=== PATIENT | male | born 1940 | race Caucasian/White ===

== ENCOUNTER → 2016-10-10 | Outpatient (REF) | payer OTHER ==
[~2016-10-10] MED LIST: DIOV320T2 PO; ULTR50TA PO
== END ==
LOC: M SMT 17:01
PROVIDERS: ATTEND Urology
DX: Z85.51 Personal history of malignant neoplasm of bladder (principal)

== ENCOUNTER → 2017-01-25 | Outpatient (CLI) | payer OTHER, MEDICAID ==
--- NOTE | 2017-01-25 15:07 | REP ---
CT NECK WITHOUT CONTRAST: HISTORY: Neoplasm. A soft tissue mass is present along the buccal surface of the anterior left mandible and mandibular symphysis. The mass measures 2.5 cm in transverse x 1.8 cm in AP dimensions. There is destruction of the buccal cortex and alveolar ridge of the anterior left mandible and mandibular symphysis. There appears to be extension of the mass superiorly all along the alveolar ridge of the left mandible with minimal inferior extension along the lingual surface of the anterior left mandible and mandibular symphysis. There is very minimal prominence of the left tonsil. The hypopharynx, larynx and subglottic trachea are normal in appearance. The salivary glands are normal. A 5 mm calcification is present in the right thyroid lobe. The left thyroid lobe is normal. Small lymph nodes less than 1 cm in size are present in the internal jugular chains, posterior triangles, submandibular and submental areas. Atherosclerotic calcification is present at the carotid bifurcations. Minimal degenerative change is present in the cervical spine. The visualized lungs are clear. Minimal mucosal thickening is present in the left maxillary sinus. IMPRESSION: There is a soft tissue mass along the buccal surface of the anterior body of the left mandible and mandibular symphysis with associated destruction of the buccal cortex and alveolar ridge of the anterior left mandible and mandibular symphysis. Signed by Luis Haddad MD 01/25/2017 03:54 P
--- NOTE | 2017-01-25 15:14 | REP ---
MAXILLOFACIAL CT WITHOUT CONTRAST: HISTORY: Neoplasm. Minimal mucosal thickening is present in the left maxillary sinus. The remaining sinuses are clear. The osteomeatal units are patent. A middle and inferior nasal turbinates are partially paradoxical. There is minimal deviation of the nasal septum to the left. The cribriform plate, medial harman of the orbits and optic canals are intact. There is aeration of the left anterior clinoid process. The carotid canals form a segment of the posterolateral harman of the sphenoid sinus. A soft tissue mass is present along the buccal surface of the anterior left mandible and mandibular symphysis. The mass measures 2.5 cm in transverse by 1.8 cm in AP dimensions. There is destruction of the buccal cortex and alveolar ridge of the anterior body of the left mandible and mandibular symphysis. Three is superior extension of the mass along the alveolar ridge of the anterior left mandible and mandibular symphysis. There is inferior extension of the mass along the lingual surface of the anterior body of the left mandible and mandibular symphysis. There is minimal prominence of the left tonsil. Small lymph nodes less than 1 cm in size are present in the internal jugular chains, posterior triangle, submandibular and submental areas. Atherosclerotic calcification is present at the carotid bifurcations. IMPRESSION: 1. Sinus mucosal thickening as described above. 2. There is a soft tissue mass along the buccal surface of the anterior body of the left mandible and mandibular symphysis with destruction of the buccal surface and alveolar ridge of the anterior left mandible and mandibular symphysis. Signed by Luis Haddad MD 01/25/2017 03:55 P
== END ==
LOC: M RAD 13:41
PROVIDERS: ATTEND Specialist
DX: C03.1 Malignant neoplasm of lower gum (principal)

== ENCOUNTER → 2017-03-08 | Outpatient (CLI) | payer OTHER, MEDICAID ==
[~2017-03-08] MED LIST changes: +AMLO10TA2 PO; +ASPI81TA21 PO; +ELIQ2.5T PO; +FURO40TA2 PO; +HYDR50TA PO; +KLOR1CAP2 PO; +LASI20TA PO; +LISI-542 PO; +METO1TAB32 PO; +NORC1TAB4 PO; +RANI1TAB38 PO
== END ==
LOC: M PLARAD 11:19
PROVIDERS: ATTEND Otolaryngology
DX: C41.1 Malignant neoplasm of mandible (principal); Z53.8 Procedure and treatment not carried out for other reasons

== ENCOUNTER 2017-03-13 13:13 | Inpatient (IN) | payer OTHER, MEDICAID, MEDICARE ==
[~2017-03-13] VITALS: Ht 172.7 cm; Wt 92.5 kg
[~2017-03-13 13:13] MED LIST changes: -AMLO10TA2 PO; -ASPI81TA21 PO; -ELIQ2.5T PO; -FURO40TA2 PO; -HYDR50TA PO; -KLOR1CAP2 PO; -LASI20TA PO; -LISI-542 PO; -METO1TAB32 PO; -NORC1TAB4 PO; -RANI1TAB38 PO
[2017-03-13] MEDS ORDERED: NS 1,000 ML IV SCH (13:28)
[2017-03-13] MEDS ORDERED: NS 500 ML IV ONE (13:30)
[2017-03-13 13:41] LABS: BASO % 0.6 % (0.0-1.0); EOS # 0.2 K/mm3 (0.0-0.50); EOS % 2.9 % (0.0-3.0); LARGE UNSTAINED CELL # 0.1 K/mm3 (0.0-0.4); LARGE UNSTAINED CELL % 1.1 % (0.0-4.0); LYMPH # 1.6 K/mm3 (1.5-4.5); LYMPH % 24.5 % (24.0-44.0); MEAN CORPUSCULAR HEMOGLOBIN 33.3 pg (27.0-33.0); MEAN CORPUSCULAR HGB CONC 33.2 g/dl (32.0-36.5); MEAN CORPUSCULAR VOLUME 100.2 fl (80.0-96.0); MONO # 0.4 K/mm3 (0.0-0.8); MONO % 5.9 % (0.0-5.0); NEUTROPHILS # 4.2 K/mm3 (1.8-7.7); NEUTROPHILS % 65.1 % (36.0-66.0); PLATELET COUNT, AUTOMATED 224 k/mm3 (150-450); WHITE BLOOD COUNT 6.4 K/mm3 (4.0-10.0)
[2017-03-13 13:46] LABS: INR 1.01
[2017-03-13] MEDS ORDERED: FURO40TA2 PO (13:53)
[2017-03-13] MEDS ORDERED: METO1TAB32 PO (13:53)
[2017-03-13] MEDS ORDERED: AMLO10TA2 PO (13:53)
[2017-03-13] MEDS ORDERED: RANI1TAB38 PO (13:53)
[2017-03-13] MEDS ORDERED: LISI-542 PO (13:53)
[2017-03-13] MEDS ORDERED: KLOR1CAP2 PO (13:53)
[2017-03-13] MEDS ORDERED: ASPI81TA21 PO (13:53)
[2017-03-13] MEDS ORDERED: NORC1TAB4 PO (13:53)
--- NOTE | 2017-03-13 14:00 | REP ---
PORTABLE CHEST: AP portable view of the chest is performed. There are no comparison studies. There is cardiomegaly. There is no evidence of acute infiltrate. The mediastinal silhouette is unremarkable. There is a possible 6 mm right parahilar nodule. IMPRESSION: No acute infiltrate. Cardiomegaly. Possible 6 mm nodule right mid lung. This could be evaluated with CT of the chest. Signed by Lawrence Terrell MD 03/13/2017 05:25 P
[2017-03-13 14:08] LABS: ALBUMIN 3.3 GM/DL (3.2-5.2); ALBUMIN/GLOBULIN RATIO 0.89 (1.00-1.93); ALKALINE PHOSPHATASE 98 U/L (45-117); ALT/SGPT 13 U/L (12-78); ANION GAP 10 MEQ/L (8-16); AST/SGOT 14 U/L (15-37); BILIRUBIN,DIRECT 0.2 MG/DL (0.0-0.2); BILIRUBIN,TOTAL 0.7 MG/DL (0.2-1.0); BLOOD UREA NITROGEN 38 MG/DL (7-18); CALCIUM LEVEL 8.8 MG/DL (8.8-10.2); CARBON DIOXIDE LEVEL 22 MEQ/L (21-32); CHLORIDE LEVEL 104 MEQ/L (98-107); CREATININE FOR GFR 2.62 MG/DL (0.70-1.30); GLOMERULAR FILTRATION RATE 25.6 (>42); GLUCOSE, FASTING 105 MG/DL (83-110); POTASSIUM SERUM 4.5 MEQ/L (3.5-5.1); SODIUM LEVEL 136 MEQ/L (136-145)
--- NOTE | 2017-03-13 15:41 | HPEPDOC ---
General Date of Admission Mar 13, 2017 at 15:22 Chief Complaint The patient is a 76-year-old male Presented to the ER after he was found to have bradycardia during a pre-operative clearance in [facility]. History of Present Illness Patient is a 76 year old male with a PMHx of Atiral flutter, HTN, CHF , CKD, Bladder CA (2012; s/p surgery and intra-bladder chemotherapy) and PVD (s/ p stent >10 years prior) who presented to the ER after he was found to have bradycardia during a pre-operative clearance in [facility]. Patient noted that he has no complaints. He has not had any chest pain, palpitations, shortness of breath, nausea or vomiting, or diaphoresis. He has a cardiology as an outpatient, Dr. Laurent. He denies a history of abnormal heart rhythm in the past. He also denies abdominal pain, diarrhea or urinary discomfort. He reports occasional constipation. Home Medications Scheduled (Klor-Con Sprinkle) 10 Meq Cap, 10 MEQ PO BID, (Reported) Amlodipine Besylate (Amlodipine Besylate) 10 Mg Tab, 10 MG PO DAILY, (Reported) Aspirin (Aspir-Low) 81 Mg Tab, 81 MG PO DAILY, (Reported) Furosemide (Furosemide) 40 Mg Tab, 40 MG PO BID, (Reported) Lisinopril (Lisinopril) 5 Mg Tab, 5 MG PO DAILY, (Reported) Metoprolol Succinate (Metoprolol Succinate ER) 25 Mg Tab, 25 MG PO DAILY, ( Reported) Ranitidine Hcl (Ranitidine Maximum Streng) 150 Mg Tab, 1 TAB PO BID, (Reported) Scheduled PRN Acetaminophen/Hydrocodone ([place] 5-325 mg) 1 Tab Tab, 1 TAB PO Q6H PRN for PAIN, (Reported) Allergies Coded Allergies: No Known Allergies (Unverified , 07/24/13) Past Medical History Medical History Atrial flutter (not on anticoagulation), HTN, CHF, CKD, Bladder CA (2012; s/p surgery and intra-bladder chemotherapy) and PVD (s/p stent >10 years prior) Surgical History Bladder surgery for cancer resection Bilateral cataract surgery Right inguinal hernia surgery (02/2016) Family History - Non-contributory Social History - Denies the use of illicit drugs; Social alcohol use; Smoker of >50 years at < 1 ppd - Denies recent travel or sick contacts - Lives alone - 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; 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 Review of Symptoms Other systems Constitutional: Denies weight loss, change in appetite, or recent trauma Eyes: No visual changes or eye pain Ears, Nose, Throat: Denies nose bleeds, or difficulty swallowing Cardiovascular: Denies chest pain, sweating, or orthopnea Respiratory: Denies cough, wheezing, or shortness of breath GI: Jr nausea, vomiting, abdominal pain, or diarrhea, Positive constipation : Denies pain with urination or frequency Musculoskeletal: Denies joint pain or swelling Neuro / Psych: Denies muscle weakness or sensory loss Skin: No skin rashes noted All other review of systems negative; otherwise stated in history of present illness Screening: - Colonoscopy done in the past with multiple polyps; most recent 5 years prior with no reported problems Vital Signs - Vitals: BP 139/58, HR 42, RR 16, Sat 98%RA - General: Lying in bed, No acute distress, Speaking in full sentences, AAOx3 - HEENT: NC, AT, PERRLA - CVS: Bradycardic, +S1S2 - Lungs: Fair air entry bilaterally, Clear to auscultation - Abdomen: Soft, Non-distended, Non-tender - Extremities: No lower extremity edema, No calf tenderness - Neuro: No focal motor or sensory deficit - Skin: No visible rashes Laboratory Data Labs 24H Laboratory Tests 2 03/13/17 13:28: White Blood Count 6.4, Red Blood Count 3.88L, Hemoglobin 12.9L, Hematocrit 38.9L , Mean Corpuscular Volume 100.2H, Mean Corpuscular Hemoglobin 33.3H, Mean Corpuscular Hemoglobin Concent 33.2, Red Cell Distribution Width 14.0, Platelet Count 224, Neutrophils (%) (Auto) 65.1, Lymphocytes (%) (Auto) 24.5, Monocytes ( %) (Auto) 5.9H, Eosinophils (%) (Auto) 2.9, Basophils (%) (Auto) 0.6, Neutrophils # (Auto) 4.2, Lymphocytes # (Auto) 1.6, Monocytes # (Auto) 0.4, Eosinophils # (Auto) 0.2, Basophils # (Auto) 0.0, Large Unclassified Cells % 1.1 , Large Unclassified Cells # 0.1, Prothrombin Time 13.4, Prothromb Time International Ratio 1.01, Anion Gap 10, Glomerular Filtration Rate 25.6L, Calcium Level 8.8, Aspartate Amino Transf (AST/SGOT) 14L, Alanine Aminotransferase (ALT/SGPT) 13, Alkaline Phosphatase 98, Total Bilirubin 0.7, Direct Bilirubin 0.2, Total Creatine Kinase 53, Creatine Kinase MB 1.0, Creatine Kinase MB Relative Index 1.88, Troponin I < 0.02, B-Type Natriuretic Peptide 1010H, Total Protein 7.0, Albumin 3.3, Albumin/Globulin Ratio 0.89L CBC/BMP Laboratory Tests 03/13/17 13:28 Red Blood Count 3.88 L, Mean Corpuscular Volume 100.2 H, Mean Corpuscular Hemoglobin 33.3 H, Mean Corpuscular Hemoglobin Concent 33.2, Red Cell Distribution Width 14.0, Neutrophils (%) (Auto) 65.1, Lymphocytes (%) (Auto) 24.5, Monocytes (%) (Auto) 5.9 H, Eosinophils (%) (Auto) 2.9, Basophils (%) ( Auto) 0.6, Neutrophils # (Auto) 4.2, Lymphocytes # (Auto) 1.6, Monocytes # (Auto ) 0.4, Eosinophils # (Auto) 0.2, Basophils # (Auto) 0.0 Plan / VTE VTE Prophylaxis Ordered?: Yes Plan Plan Bradycardia likely 2/2 medications 2/2 metoprolol - Presented without any complaints; no chest pain, shortness of breath or palpitations - Physical with regular bradycardia - EKG with atrial flutter and slow ventricular response - First set of troponin is negative; will trend - ER physician has discussed with Dr. Laurent (Cardiology); will be on consult; advised to hold metoprolol - Hold metoprolol for now; may need to restart at reduced dose - Will keep on telemetry monitoring; repeat EKG in AM - Discussed with Dr. Laurent; will start on Eliquis 2.5 BID Acute kidney injury on CKD - Baseline Cr from records (2013) appears to be 1.1 - Creatinine currently at 2.62 - Physical without signs of fluid overload - Will check urine electrolytes and urine osmolality - Will hold Furosemide and Lasix - Will start IV fluid hydration - Repeat BMP at 6PM Macrocytic anemia - Hg appears at baseline CHF - No ECHO report available - Discussed with Dr. Laurent; last ER of 40-50% - Physical without signs of fluid overload; appears compensated - BNP of 1000 - Will check 2D-ECHO - Will hold Lasix HTN - c/w Amlodipine 10mg with holding parameters - Hold Lasix and Lisinopril Bladder CA (2012) - s/p surgery and intra-bladder chemotherapy - Follows with Dr. Osborn PVD - s/p stent >10 years prior - c/w ASA 81 GERD - c/w Ranitidine DVT prophylaxis - Will start full anticoagulation with Eliquis BID DANIEL PALENCIA MD Mar 13, 2017 15:41
[2017-03-13 17:40] VITALS: BP 140/60
[2017-03-13] MEDS: NS 1,000 ML IV SCH (18:46)
[2017-03-13 20:00] VITALS: BP 184/78
[2017-03-13 20:15] LABS: CALCIUM LEVEL 8.4 MG/DL (8.8-10.2); CREATININE FOR GFR 2.48 MG/DL (0.70-1.30); GLOMERULAR FILTRATION RATE 27.3 (>42); POTASSIUM SERUM 3.7 MEQ/L (3.5-5.1)
[2017-03-13] MEDS: **hydrALAZINE HCL** 25 MG TAB PO SCH (21:10)
[2017-03-13] MEDS: APIXABAN 2.5 MG TAB (ELIQUIS) PO SCH (21:10)
[2017-03-13] MEDS: FAMOTIDINE 20 MG TAB PO SCH (21:15)
[2017-03-13] MEDS ORDERED: HEPARIN SOD (PORCINE) 5000 UNITS/ML VIAL SC SCH (22:00)
[2017-03-14] VITALS: BP 153/68
[2017-03-14 04:00] VITALS: BP 135/65
--- NOTE | 2017-03-14 05:21 | REP ---
Clinical: Acute on chronic renal failure. Rule out hydronephrosis. Technique: Real time sheehan scale and color evaluation using curved array transducer. Findings: The right kidney is atrophic, and hyperechoic consistent with chronic medical renal disease and age-related atrophy. 1.9 cm lower pole cyst is identified without hydronephrosis or obvious mass lesion. Right kidney measures 7.2 x 3.2 x 4.0 cm. The left kidney is normal in contour, size and echogenicity. A 2.0 cm complex lower pole cyst is identified without hydronephrosis, nephrolithiasis or obvious mass lesion. Left kidney measures 11.8 x 5.3 x 7.2 cm. Bladder is grossly unremarkable although mild wall thickening cannot be excluded. Impression: Atrophic chronic changes to the right kidney without hydronephrosis. Solitary bilateral renal cysts. Mild bladder wall thickening cannot be excluded based on current examination. Signed by Hermes Love MD 03/14/2017 05:12 A
[2017-03-14 05:56] LABS: BASO % 0.3 % (0.0-1.0); EOS # 0.2 K/mm3 (0.0-0.50); EOS % 2.8 % (0.0-3.0); LARGE UNSTAINED CELL # 0.1 K/mm3 (0.0-0.4); LARGE UNSTAINED CELL % 1.3 % (0.0-4.0); LYMPH # 1.3 K/mm3 (1.5-4.5); MEAN CORPUSCULAR HEMOGLOBIN 34.2 pg (27.0-33.0); MEAN CORPUSCULAR HGB CONC 34.1 g/dl (32.0-36.5); MEAN CORPUSCULAR VOLUME 100.2 fl (80.0-96.0); MONO # 0.3 K/mm3 (0.0-0.8); MONO % 5.4 % (0.0-5.0); NEUTROPHILS % 69.2 % (36.0-66.0); PLATELET COUNT, AUTOMATED 208 k/mm3 (150-450); RED CELL DISTRIBUTION WIDTH 14.1 % (11.5-14.5); WHITE BLOOD COUNT 5.8 K/mm3 (4.0-10.0)
[2017-03-14 06:45] LABS: ALBUMIN/GLOBULIN RATIO 0.86 (1.00-1.93); BILIRUBIN,TOTAL 0.8 MG/DL (0.2-1.0); CALCIUM LEVEL 8.5 MG/DL (8.8-10.2); CREATININE FOR GFR 2.21 MG/DL (0.70-1.30); GLOMERULAR FILTRATION RATE 31.1 (>42); TOTAL PROTEIN 6.5 GM/DL (6.4-8.2)
[2017-03-14 07:45] VITALS: BP 176/76
[2017-03-14] MEDS: amLODIPine 10 MG TAB PO SCH (09:31)
[2017-03-14] MEDS: APIXABAN 2.5 MG TAB (ELIQUIS) PO SCH ×2 (09:31→21:52)
[2017-03-14] MEDS: ASPIRIN 81 MG ENTERIC TAB PO SCH (09:31)
[2017-03-14] MEDS: FAMOTIDINE 20 MG TAB PO SCH ×2 (09:31→21:52)
[2017-03-14] MEDS: **hydrALAZINE HCL** 25 MG TAB PO SCH (09:31)
[2017-03-14] MEDS: NS 1,000 ML IV SCH (09:32)
--- NOTE | 2017-03-14 10:31 | ECGEPIP ---
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
[2017-03-14 12:00] VITALS: BP 165/69
[2017-03-14] MEDS: NORCO, ANEXSIA 5/325MG TABLET (HYDROcodone/ACETAMINOPHEN) PO PRN ×3 (13:16→22:23)
[2017-03-14] MEDS ORDERED: ELIQ2.5T PO (13:51)
--- NOTE | 2017-03-14 14:34 | IPN ---
DATE: 03/14/2017 SUBJECTIVE: Today, the patient tells me that he feels completely normal. He has no complaints whatsoever. He has not had any complaints throughout his presentation. He denies chest pain, lightheadedness, dizziness, nausea, vomiting, fevers, chills, chest pain, or shortness of breath. OBJECTIVE: VITAL SIGNS: Temperature 99.2, pulse 62, respiratory rate 20. Blood pressure 155/69. GENERAL: He is a disheveled, elderly, male lying flat in bed. He does not appear to be in any acute distress. HEENT: Poor dentition. Pupils are equal, round and reactive to light. No elevation of central venous pressure. Moist mucous membranes. CARDIOVASCULAR EXAMINATION: S1, S2. Bradycardic. Irregular. No additional heart sounds appreciated. RESPIRATORY EXAM: Clear. ABDOMINAL EXAM: Obese. EXTREMITIES: No clubbing, cyanosis or edema. He has nicotine stained fingertips. LABORATORY DATA: WBC 5.8, hemoglobin 12.0, platelet count 208. Chemistry panel: Sodium 141, potassium 4.0, chloride 109, bicarbonate 28, BUN 31, creatinine 2.2, which continues to improve from 2.6 at the time of admission. Multiple sets of cardiac enzymes are negative. IMAGING: The patient did have a renal ultrasound, which revealed atrophic change of the right kidney without hydronephrosis. Solitary bilateral renal cysts, mild bladder wall thickening. ASSESSMENT AND PLAN: This is a 76-year-old man with asymptomatic bradycardia secondary to medications. 1. Asymptomatic bradycardia. Likely related to metoprolol adverse effect. The patient's heart rate does appear to be improving with discontinuation of this medication. We will continue to monitor him for now. Dr. Laurent's help has been greatly appreciated. He does have atrial fibrillation without any rapid ventricular response. He has been started on Eliquis. This was sent to his pharmacy to obtain a prior authorization. 2. Acute kidney injury. Likely prerenal azotemia given his improvement with IV fluids and improvement of hemodynamics. Continue to hold his Lasix. We will discontinue IV fluids and encourage orally. Continue to monitor. 3. Macrocytic anemia. This appears to be at baseline and relatively mild. 4. Congestive heart failure (CHF) with moderate systolic dysfunction. As per Dr. Laurent. He does not appear to be decompensated. We will defer to Dr. Laurent if he feels an echocardiogram is necessary. 5. Hypertension. Continue his amlodipine. His Lasix was also on hold related to acute kidney injury. 6. Bladder cancer, status post surgery. He follows with Dr. Osborn. 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 His surgeon and oncologist are all in [place]. He will followup with them. 8. Peripheral vascular disease, status post stent 10 years ago. Continue with aspirin. 9. Gastroesophageal reflux disease (GERD). Continue with ranitidine. 10. Deep vein thrombosis (DVT) prophylaxis. The patient is on Eliquis. DISPOSITION: We will continue to monitor the patient closely. He may require adjustments with antihypertensive regimen. I suspect that he may be able to be discharged within the next 24 to 48 hours.
[2017-03-14 15:30] VITALS: BP 152/64
[2017-03-14] MEDS ORDERED: SLF 3 ML SYR IV PRN (19:00)
[2017-03-14 20:25] VITALS: BP 159/71
[2017-03-14] MEDS: SLF 3 ML SYR IV SCH (21:52)
[2017-03-14] MEDS: **hydrALAZINE** 50 MG TAB PO SCH (21:52)
[2017-03-15 00:51] VITALS: BP 163/77
[2017-03-15] MEDS: NORCO, ANEXSIA 5/325MG TABLET (HYDROcodone/ACETAMINOPHEN) PO PRN (05:12)
[2017-03-15] MEDS: SLF 3 ML SYR IV SCH (05:13)
[2017-03-15 05:18] VITALS: BP 160/81
[2017-03-15 05:52] LABS: BASO % 0.2 % (0.0-1.0); EOS # 0.1 K/mm3 (0.0-0.50); EOS % 1.7 % (0.0-3.0); LARGE UNSTAINED CELL # 0.1 K/mm3 (0.0-0.4); LYMPH # 1.6 K/mm3 (1.5-4.5); LYMPH % 23.2 % (24.0-44.0); MEAN CORPUSCULAR HEMOGLOBIN 33.4 pg (27.0-33.0); MEAN CORPUSCULAR HGB CONC 33.3 g/dl (32.0-36.5); MEAN CORPUSCULAR VOLUME 100.3 fl (80.0-96.0); MONO # 0.4 K/mm3 (0.0-0.8); MONO % 5.7 % (0.0-5.0); NEUTROPHILS # 4.5 K/mm3 (1.8-7.7); NEUTROPHILS % 68.2 % (36.0-66.0); PLATELET COUNT, AUTOMATED 208 k/mm3 (150-450); RED CELL DISTRIBUTION WIDTH 14.1 % (11.5-14.5); WHITE BLOOD COUNT 6.6 K/mm3 (4.0-10.0)
[2017-03-15] MEDS ORDERED: NORCO, ANEXSIA 5/325MG TABLET (HYDROcodone/ACETAMINOPHEN) PO PRN (06:00)
[2017-03-15 06:07] LABS: ALBUMIN 3.2 GM/DL (3.2-5.2); ALBUMIN/GLOBULIN RATIO 0.89 (1.00-1.93); BILIRUBIN,TOTAL 0.8 MG/DL (0.2-1.0); CALCIUM LEVEL 8.5 MG/DL (8.8-10.2); CREATININE FOR GFR 1.79 MG/DL (0.70-1.30); GLOMERULAR FILTRATION RATE 39.7 (>42); MAGNESIUM LEVEL 2.3 MG/DL (1.8-2.4); POTASSIUM SERUM 3.5 MEQ/L (3.5-5.1); TOTAL PROTEIN 6.8 GM/DL (6.4-8.2)
[2017-03-15] MEDS ORDERED: HYDR50TA PO (07:55)
[2017-03-15] MEDS ORDERED: LASI20TA PO (07:59)
[2017-03-15] MEDS: ASPIRIN 81 MG ENTERIC TAB PO SCH (08:29)
[2017-03-15] MEDS: FAMOTIDINE 20 MG TAB PO SCH (08:29)
[2017-03-15] MEDS: amLODIPine 10 MG TAB PO SCH (08:29)
[2017-03-15 08:30] VITALS: BP 160/81
[2017-03-15] MEDS: APIXABAN 2.5 MG TAB (ELIQUIS) PO SCH (08:30)
[2017-03-15] MEDS: **hydrALAZINE** 50 MG TAB PO SCH (08:30)
--- NOTE | 2017-03-16 13:56 | DSES ---
DATE OF ADMISSION: 03/13/2017 DATE OF DISCHARGE: 03/15/2017 DISCHARGE DIAGNOSIS: Acute kidney injury. SECONDARY DIAGNOSES: Bradycardia. Congestive heart failure. Hypertension. Bladder cancer. Oral cancer. Peripheral vascular disease. Gastroesophageal reflux disease. CONSULTS: Dr. Laurent, cardiology. HOSPITAL COURSE: The patient is a 76-year-old man who is undergoing preop risk stratification, was noted to be significant bradycardic although he was symptomatic, he was referred to the emergency room where his heart rate was found to be in the 30s and he was found to have acute kidney injury. He was admitted to the progressive care unit, seen by Dr. Laurent who is his outpatient mine wirer. The patient's metoprolol was stopped. He has a history of atrial flutter. His heart rate did improve to the mid 50s. He continues to be asymptomatic. He did have acute kidney injury that did resolve with holding of his home diuretic and gentle IV fluid resuscitation. At this time, the patient is doing well, asymptomatic. Tolerating all medications. During his stay, he was also started on Eliquis for anticoagulation by Dr. Laurent. Prior authorization has been attempted. SUBJECTIVE: This morning the patient tells me that he continues to feel well without complaint. OBJECTIVE: Vital signs: Temperature 98, pulse 59, respiratory rate 20, blood pressure 160/81, oxygen saturation 96% on room air. General: He is disheveled elderly man lying in bed. He does not appear to be in any acute distress. HEENT: Poor dentition. Moist mucous membranes. No elevation of CVP. Cranial nerves II through XII are grossly intact. Cardiovascular exam: S1, S2. Bradycardic but appears regular. No additional heart sounds appreciated. Respiratory exam: Clear. Abdominal exam: Obese. Extremities: No clubbing, cyanosis or edema. He has nicotine stained fingertips. LABORATORY STUDIES TODAY: WBC 6.6, hemoglobin 12.5, hematocrit 37.5, platelet count 208. Chemistry panel: Sodium 136, potassium 3.5, chloride 107, carbon dioxide 23, BUN 21, creatinine 1.7. IMAGING: The patient has a renal ultrasound and did not reveal any hydronephrosis. ASSESSMENT AND PLAN: This is a 76-year-old man with asymptomatic bradycardia and acute kidney injury. PROBLEMS: 1. Asymptomatic bradycardia likely related to metoprolol adverse effect. He is in atrial flutter. He does appear to be improved with discontinuation of his medication. Dr. Laurent's help has been appreciated. He has been started on Eliquis for anticoagulation. Prior authorization has been obtained. He will followup with Dr. Laurent as scheduled this coming Monday. 2. Acute kidney injury likely prerenal azotemia, did improve with IV fluids and improvement of hemodynamics. His Lasix is currently on hold. He was discontinued on IV fluids yesterday. His renal function continues to improve. I will discharge him restarting his home diuretic but at a lower dose. Will have it cut in half. He will have further followup with Dr. Laurent. 3. Macrocytic anemia, baseline, relatively mild. 4. Moderate systolic congestive heart failure. He appears compensated during the stay. 5. Hypertension. He is on amlodipine and Lasix. 6. Bladder cancer status post surgery. Follows with Dr. Osborn. 7. Oral cancer. He has an area of leukoplakia. His surgeon and oncologist are all in [place] and he is undergoing evaluation for surgical excision. He has had a biopsy which confirmed that this is cancer. Continue to followup as scheduled. 8. Peripheral vascular disease status post stent 10 years ago. Continue with aspirin. 9. Gastroesophageal reflux disease, continue with ranitidine. 10. Deep venous thrombosis (DVT) prophylaxis, patient on Eliquis. DISPOSITION: The patient is being discharged home to the care of his daughter. I did have a family meeting yesterday with her in the evening and answered all questions to her satisfaction. He is to followup with his primary care physician in 7 days, Dr. Laurent on Monday. His activity and diet are as prior to admission. He is to return to the ER if symptoms worsen. MEDICATIONS AT THE TIME OF DISCHARGE: - Eliquis 2.5 mg twice a day - Lasix 20 mg twice a day - hydralazine 50 mg three times a day - [place] 5/325 one tablet every 6 hours as needed for pain - Norvasc 10 mg daily - aspirin 81 mg daily - K-Eun sprinkle 10 mEq twice a day - ranitidine 150 mg twice a day Greater than 30 minutes spent organizing disposition. [facility]
--- NOTE | 2017-03-16 19:05 | ECGEPIP ---
Stationary ECG Study [facility] - ED Test Date: 2017-03-13 Pat Name: ROSI SOLIS Department: Room: - Gender: M Multimedia Authoring Specialist: JESSICA : 1940 Requested By: SARAI CONTRERAS Order Number: [id number] Reading MD: Umer Jaime Measurements Intervals [place] Rate: 43 P: [place]: 0 QRS: -32 QRSD: 102 T: 71 QT: 499 QTc: 424 Interpretive Statements ATRIAL FLUTTER WITH SLOW VENTRICULAR RESPONSE MARKED LEFT AXIS DEVIATION NONSPECIFIC ST & T-WAVE ABNORMALITY NO PRIORS Electronically Signed On 03-16-2017 19:04:53 EDT by Umer Jaime
== END 2017-03-15 10:38 | disposition home or self-care (01) | DRG 309 ==
LOC: M ED 13:13 → M ED INP 15:22 → M PCU 17:33
PROVIDERS: ADMIT Internal Medicine; ATTEND Internal Medicine
DX: R00.1 Bradycardia, unspecified (principal); N17.9 Acute kidney failure, unspecified; I50.22 Chronic systolic (congestive) heart failure; I11.0 Hypertensive heart disease with heart failure; K13.21 Leukoplakia of oral mucosa, including tongue; I73.9 Peripheral vascular disease, unspecified; F17.210 Nicotine dependence, cigarettes, uncomplicated; K21.9 Gastro-esophageal reflux disease without esophagitis; T44.7X5A Adverse effect of beta-adrenoreceptor antagonists, initial encounter; Z85.51 Personal history of malignant neoplasm of bladder; Z92.21 Personal history of antineoplastic chemotherapy; Z95.9 Presence of cardiac and vascular implant and graft, unspecified; Z79.82 Long term (current) use of aspirin; Z79.899 Other long term (current) drug therapy

== ENCOUNTER → 2017-03-13 | Outpatient (CLI) | payer OTHER, MEDICAID | END | disposition home or self-care (01) | LOC: M RADPRO 12:34 | PROVIDERS: ATTEND Otolaryngology | DX: K11.8 Other diseases of salivary glands (principal); Z53.9 Procedure and treatment not carried out, unspecified reason; I10 Essential (primary) hypertension; Z95.5 Presence of coronary angioplasty implant and graft; Z87.891 Personal history of nicotine dependence; Z85.830 Personal history of malignant neoplasm of bone ==

== ENCOUNTER → 2017-03-24 | Outpatient (CLI) | payer OTHER, MEDICAID ==
[~2017-03-24] MED LIST changes: +AMLO10TA2 PO; +ASPI81TA21 PO; +ELIQ2.5T PO; +FURO40TA2 PO; +HYDR50TA PO; +KLOR1CAP2 PO; +LASI20TA PO; +LIDOCAINE 1% MDV 20ML VIAL As Ordered ONE; +LISI-542 PO; +METO1TAB32 PO; +NORC1TAB4 PO; +RANI1TAB38 PO
--- NOTE | 2017-03-24 13:36 | REP ---
ULTRASOUND-GUIDED RIGHT PAROTID MASS BIOPSY: The procedure was performed under the direct supervision of Dr. Doss. The risks and benefits of the procedure were explained to the patient, and informed consent was obtained. The right parotid mass was localized using ultrasound guidance. The skin was prepped and draped in a sterile fashion. 1% Xylocaine was used as a local anesthetic. Using ultrasound guidance, seven fine-needle aspirations were obtained using six 25-gauge needles and one 18-gauge needle. All samples were sent to the lab for analysis. The patient tolerated the procedure well, and there were no immediate complications. After the appropriate amount of monitored convalescence, the patient was discharged from the department. Reviewed by ARNEL Mccallum 03/24/2017 03:34 PEdited and Signed by Arik Doss MD 03/24/2017 10:09 P
== END ==
LOC: M RADPRO 09:22
PROVIDERS: ATTEND Otolaryngology
DX: R22.0 Localized swelling, mass and lump, head (principal); Z79.899 Other long term (current) drug therapy; F17.210 Nicotine dependence, cigarettes, uncomplicated